=== PATIENT | female | born 1995 | race Caucasian/White ===

== ENCOUNTER 2020-09-02 04:18 | Emergency (ER) | payer MEDICAID ==
[~2020-09-02] VITALS: Ht 165.1 cm; Wt 49.0 kg
[~2020-09-02 04:18] MED LIST: ONDA4TAB6 PO
[2020-09-02 04:19] VITALS: BP 111/77
[2020-09-02 05:19] LABS: URINE HCG NEGATIVE (NEG)
== END 2020-09-02 05:52 ==
LOC: ER 04:19
DX: N92.6 Irregular menstruation, unspecified (principal); R09.89 Other specified symptoms and signs involving the circulatory and respiratory systems; Z79.899 Other long term (current) drug therapy; Z72.89 Other problems related to lifestyle; Z59.0 Homelessness
CPT/HCPCS: 81025; 99283

== ENCOUNTER 2023-01-31 11:20 | Emergency (ER) | payer MEDICAID ==
[~2023-01-31] VITALS: Ht 165.1 cm; Wt 50.0 kg
[~2023-01-31 11:20] MED LIST changes: +ONDA4TAB12 PO
[2023-01-31 11:24] VITALS: BP 107/73; PULSE 94; RESP 18; TEMP 98.7; O2SAT 98
== END 2023-01-31 13:10 ==
LOC: ER 11:20
CPT/HCPCS: 99283